=== PATIENT | female | born 1940 | race Caucasian/White ===

== ENCOUNTER 2018-11-06 05:53 | Inpatient (IN) ==
[2018-11-06] MEDS ORDERED: TRANEXAMIC ACID 1,000 MG in NORMAL SALINE 100 ML IV PRN (06:00)
[2018-11-06] MEDS ORDERED: MORPHINE SULFATE 15 MG TABLET.SA PO PRN (06:00)
[2018-11-06] MEDS ORDERED: ceFAZolin SODIUM 1 GM VIAL IV PRN (06:00)
[2018-11-06] MEDS ORDERED: ROPIVACAINE HCL/PF 100 MG, EPINEPHrine 0.2 MG, KETOROLAC TROMETHAMINE 30 MG in NORMAL S... IJ PRN (06:00)
[2018-11-06] MEDS: RINGER'S SOLUTION,LACTATED 1,000 ML IV PRN ×2 (07:17→08:59)
--- NOTE | 2018-11-06 07:18 | ANES ---
Anesthesia Pre Procedure Eval Vitals/Labs: Last Vital Signs Temp 36.4 C 11/06/18 06:38 Pulse 71 11/06/18 06:38 Resp 18 11/06/18 06:38 BP 171/64 H 11/06/18 06:38 Pulse Ox 98 11/06/18 06:38 HOME MEDICATIONS Acebutolol HCl [Sectral] 200 mg PO HS 06/06/15 [Last Taken 11/05/18] Hydrochlorothiazide [Hydrodiuril] 25 mg PO DAILY 06/06/15 [Last Taken 11/06/18] Multivit-Minerals/Folic/Ginkgo [One Daily Women 50 Plus Tab] 1 ea PO DAILY 06/06/15 [Last Taken 11/05/18] [place]-3 Fatty Acids/Fish Oil [Fish Oil 1,000 mg Capsule] 1 ea PO BID 06/06/15 [Last Taken 11/05/18] oxybutynin chloride ER 10 mg tablet,extended release 24 hr 10 mg PO DAILY 09/06/18 [Last Taken 11/05/18] escitalopram 10 mg tablet 20 mg PO DAILY tab 09/12/18 [Last Taken 11/05/18] losartan 50 mg tablet 50 mg PO DAILY 09/12/18 [Last Taken 11/05/18] Cholecalciferol (Vitamin D3) [Vitamin D3] 1,000 unit PO DAILY 11/06/18 [Last Taken 11/05/18] Cyanocobalamin [Vitamin B-12] 1,000 mcg IJ .COMPLEX 11/06/18 [Last Taken 11/03/18] Allergies/Adverse Reactions: Allergies Allergy/AdvReac Type Severity Reaction Status Date / Time No Known Allergies Allergy Verified 09/19/18 12:58 - Planned Procedure Planned Procedure: Revision Uni to total R knee Medication List Reviewed:: Yes Allergies Verified: Yes Medical History (Updated 11/06/18 @ 06:55 by Ayana Lucio RN) Knee pain, right (Chronic) Onset Date: Unknown Lives alone with help available No history of alcohol use Non-tobacco user Stress incontinence Vitamin B12 deficiency Wears dentures Wears glasses Cataract Onset Date: ~2009 p/t reports resolved due to surgery, bilateral Hypertension Onset Date: ~1989 Obesity Onset Date: ~2014 Osteoarthritis Onset Date: ~2003 Tear of meniscus of left knee Onset Date: ~2003 Surgical History (Updated 11/06/18 @ 06:56 by Ayana Lucio RN) Bilateral cataracts H/O arthroscopy of right knee Onset Date: ~07/2003 RT; left- 06/23-16 Dr. Duffy History of total knee arthroplasty Onset Date: ~07/[address] Duffy 2016 and partial R 2003 by unknown Hx of cholecystectomy Onset Date: ~1979 S/P TYLOR-BSO Onset Date: ~1985 Tubal ligation status Onset Date: ~1978 Family History (Last Reviewed 11/06/18 @ 07:04 by Gurwinder March CRNA) Father Alzheimers disease Hypertension Mother Diabetes Myocardial infarction CVA (cerebral vascular accident) Sister Hypertension Brother Alive and well Daughter History of open heart surgery Hypertension Daughter Hypertension Brother No problems noted. Son Hypertension Son Hypertension Son Hypertension - Family Anesthesia History Family History:: no untoward family reactions to anesthesia, no familial bleeding tendencies, no family history of clotting disorders, no family history of premature - Airway/Neck/Teeth Teeth Condition: none Denture Type: Full upper, Full lower Neck Exam: full range of motion Mallampatti Score: 1 Thyromental (T-M) distance: > 6 cm Mandibulo Hyoid distance: > 3 cm - Respiratory Respiratory Physical: lungs clear Smoking Status: Never smoker Sleep Apnea currently treated: No Sleep Apnea by current assessment: No - Cardiovascular Cardiac History: hypertension Tolerate Activity: Fair Heart Sounds: S1 & S2, Regular - Anesthesia Assessment and Plan ASA Class: PS, II Anesthesia Type Plan: Block - adductor canal block for post op pain relief, Spinal
[2018-11-06] MEDS ORDERED: ACETAMINOPHEN 500 MG TABLET PO PRN (11:00)
[2018-11-06] MEDS ORDERED: MORPHINE SULFATE 2 MG/ML DISP.SYRIN IV PRN (11:00)
[2018-11-06] MEDS ORDERED: ONDANSETRON HCL/PF 2 MG/ML VIAL IV PRN (11:00)
[2018-11-06] MEDS ORDERED: diphenhydrAMINE HCL 50 MG/ML VIAL IV PRN (11:00)
[2018-11-06] MEDS ORDERED: MAG HYDROX/ALUMINUM HYD/SIMETH 30 ML UDC PO PRN (11:00)
[2018-11-06] MEDS ORDERED: ZOLPIDEM TARTRATE 5 MG TABLET PO PRN (11:00)
[2018-11-06] MEDS ORDERED: MAGNESIUM HYDROXIDE 30 ML UDC PO PRN (11:00)
--- NOTE | 2018-11-06 11:09 | OR ---
Operative Report - Dictated Report Narrative: Date: 11/06/2018 Preoperative diagnosis: Painful right unicompartmental knee arthroplasty with progression of knee degenerative joint disease. Postoperative diagnosis: Painful right unicompartmental knee arthroplasty with progression of knee degenerative joint disease. Procedure: Revision right Total knee arthroplasty. Revision anterior knee scar 15 cm. Surgeon: Devante Duffy M.D. [employer]folio Management Marketing: Juan David Yarbrough PA-C (provided and essential set of skilled, educated hands that assisted with transfer, positioning, prepping, draping, manipulation, retraction, placement of jigs, injection, insertion of implants, irrigation, closure wounds, and dressings all of which could not be performed by the available surgical crew) Anesthesia: Spinal with regional block and local periarticular joint injection. Complications: None Specimens: Bone. Tissue for acute inflammation. Implants for disposal Estimated blood loss: 50 mL. Tourniquet time: 121 Minutes at 350 millimeters of mercury. Retained implants: Depuy Attune size 5 narrow right lugged cemented posterior stabilized femoral component. Size 5 rotating platform attune revision cemented tibial. 5 by 10 millimeter posterior stabilized cross-linked tibial insert. The 14 mm x 50 mm cemented revision tibial stem. Revision tibial augment cemented 5 mm medial step augment. 38 millimeter medialized patella button. Indications: Mrs. Reyes is a 78-year-old female who previously underwent a uni-compartment knee arthroplasty and has developed progressive arthrosis. This patient was followed in my clinic for period of time with significant complaints of right knee pain consistent with arthritic changes. She had failed conservative measures including, but not limited to, activity modification, passage of time, medications, and other conservative measures. Patient wished to proceed with surgical treatment. A workup for infection was negative. The risks, benefits, and alternatives were discussed in clinic. The risks of , blood clots, bleeding, infection, nerve/tendon blood vessel/ injury, malposition of components, intraoperative fracture, postoperative limited range of motion, persistent pain, failure of components, and need for additional procedures. Patient wished to proceed consent was obtained after answering all questions. Procedure: After marking the correct extremity on the floor, the patient was taken to the operating room. A timeout was performed. IV antibiotics consis ting of left were administered prior to the procedure. A regional followed by spinal anesthetic was induced by anesthesia, per my request, on the operative table with all bony prominences well-padded. Dong catheter was placed, and a bump was placed under the operative side buttock. SCDs and EPI hose were utilized on the nonoperative leg. A well-padded tourniquet was applied to the operative thigh. The operative leg was then pre-scrubbed with alcohol, prepped, and draped in a standard sterile fashion. After exsanguinating the extremity with an Esmarch bandage, the tourniquet was inflated. She had a previous incision which was utilized. This was somewhat widened and over the course of 15 cm this was excised. The skin was incised and dissected down to the joint retinaculum. The joint retinaculum was marked out as well as the horizontal axis of the patella, and a standard medial parapatellar arthrotomy was then made. The most proximal aspect of the quadriceps tendon and the patella tendon insertion were protected from release. A partial synovectomy was performed as well as a resection of the infrapatellar fat pad. The prior implants were identified and showed no signs of gross loosening. There is no gross signs of infection. Tissue was sent to pathology for evaluation with frozen specimen for acute inflammation which showed less than 5 neutrophils per high-power field. The distal femoral fat pad proximal to the trochlea was also resected using cautery. The soft tissues were elevated off the medial aspect of the proximal tibia using a Samuels elevator ensuring that we did not transect the medial collateral ligament. Upon initial evaluation range of motion was approximately 0 degrees to 120 degrees of flexion. There were signs of advanced arthrosis in the patellofemoral and lateral joint spaces. There were large marginal osteophytes which were removed with a rongeur. We initially turned our attention to removing the implants. The tibial polyethylene was removed and attention was turned to the femoral implant. The femoral implant was somewhat prominent over the remaining bone and was removed quite easily without any significant bone loss. The tibia was cut and somewhat recessed into the tibia and utilizing osteotomes this was also removed without any excessive bone loss. The knee was hyperflexed and the patella was tucked laterally. Protecting the surrounding soft tissues with Homans, an entry drill was placed down the femoral canal using Whitesides line for guidance into the entry point. The intramedullary femoral alignment maria was utilized in order to cut the distal femur in 5 degrees of valgus resecting 10 millimeters of bone. This allowed for a cleanup cut of the medial femur. Next the distal femur was sized to a size 5. A posterior referencing guide was utilized to place the distal femoral cutting block in 3 degrees of external rotation. There was some remaining bone over the posterior medial femoral condyle which allowed for posterior referencing. This was pinned into place. The rotation was confirmed both visually and based on anatomic landmarks. The 4 in 1 cutting jig of the appropriate size was utilized in order to make all bony cuts. The beverly wing was used to ensure no excessive notching. Retractors were utilized in order to protect surrounding soft tissues. This cut did not result in any excessive notching. We then cut the box centered over the distal femur. This allowed for resection of the anterior and posterior cruciate ligaments. I then turned my attention to the preparation of the tibia. Using an extra medullary tibial alignment maria, we initially resected for millimeters of bone was resected off the lateral articular surface. This was made perpendicular to the mechanical axis of the joint with the alignment maria centered over the ankle mortise. Due to the significant prior bony resection of the medial tibia was felt that a step cut type implant will be necessary. We subsequently placed a series of reamers down the tibial canal up to a size 16. The step cut was then made in order to clean up cut medial femur and based on evaluation additional 2 to 3 mm of cut was made off of the lateral joint space. The alignment maria was checked and was noted to be parallel to the mechanical axis, centered over the medial one third of the tibial tubercle, paralleling the anterior surface of the tibia. We then turned our attention to the remaining meniscus and soft tissues. These were removed while protecting the surrounding ligaments and soft tissues. The marginal osteophytes off the anterior, posterior, medial, lateral aspects of the femur and tibia were removed. The tibia was sized out to a size 5 with a 5 mm step in the medial tibial plateau. Next the tibia was drilled and punched in an externally rotated position. Next the trial femur and a series of tibial inserts were utilized in order to allow for full extension and maximal flexion. It was found that a 10 millimeter insert gave the best range of motion and stability at multiple flexion points as well as at full extension there was less than 2 mm of gapping both medially and laterally. There is minimal anterior translation with the knee at 90 degrees of flexion and no signs of being able to dislocate the knee. The patella was then prepared. The initial thickness was 24 millimeters. This was reamed down to 14 millimeters parallel to the anterior surface of the patella. It was sized out to a size 38 medialized patella button. This was then drilled and trialed. Without any medial restraint the patella tracked appropriately and did not sublux or dislocate. At this point, it was felt these were the appropriate sized implants, and all trials were removed. The standard periarticular joint injection consisting of ropivacaine, Toradol, and epinephrine were injected into the periarticular joint tissues. The bony surfaces were thoroughly irrigated with a pulsatile-suction saline irrigation device. A bone plug from the prior resected bone cut was placed into the drill hole at the distal femur. The bony surfaces were then dried in preparation for placement of the implants. The cement was vacuum mixed per the production corrugator's instructions. The cement was placed on the dry bony surfaces and posterior aspect of the implants as well as down the tibial canal. A portion of the prior bone cuts was utilized as a plug distally. The implants were impacted into place, removing all extruded cement. At this point anesthesia administered tranexamic acid per protocol intravenously. The knee was placed in extension with axial loading with the trial insert while the cement cured. Once the cement cured, all remaining extruded cement was removed. The knee was placed through a range of motion with the trial insert to ensure appropriate range of motion and stability. Final range of motion was approximately 0 to 120 degrees. The knee was again thoroughly irrigated with pulsatile saline lavage. The final polyethylene insert was then impacted into place ensuring no retained soft tissues. The remaining periarticular joint injection was injected. A medium Hemovac drain was placed exiting superior laterally. The knee was then placed over a triangle and the arthrotomy was closed with interrupted #1 Vicryl after thoroughly irrigating the joint. The deep and subcutaneous tissues were closed with interrupted 0 and 3-0 Vicryl respectively. Skin was closed with a running subcutaneous 3-0 Monocryl and Prineo Dermabond dressing. 4 x 4's, Sof-Rol, and a full leg Chente wrap were araceli lied. All sponge, needle, blade, and instrument counts were correct prior to closing the wounds. Postoperative condition: The patient was awoken and transferred to the postanesthesia care unit in stable condition. Plan is to be admitted to the inpatient medical/surgical floor postoperatively for 24 hours of IV antibiotics, physical therapy, occupational therapy, and medical comanagement. Patient will be weightbearing as tolerated with range of motion as tolerated. DVT prophylaxis will be with SCDs, EPI hose, and pharmacological anticoagulation. Anticipated hospital stay is approximately 1-3 days.
--- NOTE | 2018-11-06 11:14 | ANES ---
Post Anesthesia Discharge - Transfer of Care Transfer of Care handoff given to nurse: Yes - Discharge from PACU Discharge from PACU when meets criteria: Yes - Comfortable in PACU.
--- NOTE | 2018-11-06 11:17 | ANES ---
Anesthesia Procedure Note Procedure Note: ANESTHESIA PROCEDURE NOTE Date of Procedure: 11/06/2018 Time of procedure: 7:50 AM. Performed by: Gurwinder March CRNA, MSN Supervisor [employer]: Zo Etienne RN. Preprocedure diagnosis: Right total knee arthroplasty pain. Post procedure diagnosis: Same. Procedure: Right Adductor Canal Block. Indications: Post right total knee arthroplasty pain relief. Findings: See below. Details of the procedure: The patient was brought to OR #4 and placed in supine position. The patient's right femoral area to the knee was prepped with chlorhexidine and using ultrasound guidance the right femoral artery wasidentified at approximately the proximal one third femur. Under ultrasound guidance the saphenous nerve was approached with visualization of a 4 inch shielded block needle approaching the adductor canal just under the sartorius muscle. Once saphenous nerve was identified with proximity to the needle tip, the saphenous nerve was surrounded with 20 mL bupivacaine 0.25% with 1-200,000 epinephrine. Please see radiology/ultrasound report for details and retained images of the procedure. EBL: 0 Fluids: N/A. Specimen: N/A. Post procedure condition: The patient tolerated the procedure well. No complications were noted. Thank you for this consultation. Gurwinder March CRNA, MSN
[2018-11-06] MEDS ORDERED: SIMETHICONE 80 MG TAB.CHEW PO ONE (11:30)
[2018-11-06] MEDS: DEXTROSE 5%-LACTATED RINGERS 1,000 ML IV PRN ×2 (11:57→21:05)
[2018-11-06] MEDS: KETOROLAC TROMETHAMINE 15 MG/ML VIAL IV SCH ×2 (11:58→17:30)
[2018-11-06] MEDS: ceFAZolin SODIUM 1 GM in DEXTROSE 5 % IN WATER 100 ML IV SCH ×4 (12:09→19:23)
--- NOTE | 2018-11-06 13:53 | ANES ---
Post Anesthesia Assessment - Vital Signs Vitals: Last Vital Signs Temp 36.5 C 11/06/18 11:52 Pulse 67 11/06/18 11:52 Resp 16 11/06/18 11:52 BP 135/65 11/06/18 11:52 Pulse Ox 100 11/06/18 11:52 Airway Patency: Normal - Mental Status Level Of Consciousness: Awake, Alert, Appropriate - Pain Level Pain Score: 3 - N/V Assessment Nausea/Vomiting Presence: None Dehydration:: No
[2018-11-06] MEDS: oxyCODONE HCL/ACETAMINOPHEN 1 TAB TABLET PO PRN (17:34)
[2018-11-06] MEDS: OMEGA-3 FATTY ACIDS 1 CAP CAPSULE PO SCH (20:59)
[2018-11-06] MEDS: MORPHINE SULFATE 15 MG TABLET.SA PO SCH (20:59)
[2018-11-06] MEDS ORDERED: SENNOSIDES/DOCUSATE SODIUM 1 TAB TABLET PO SCH (21:00)
[2018-11-06] MEDS ORDERED: PROPRANOLOL HCL 80 MG CAPSULE.SA PO SCH (21:00)
[2018-11-06] MEDS ORDERED: ACEBUTOLOL HCL 200 MG CAPSULE PO SCH (21:00)
[2018-11-07] MEDS: KETOROLAC TROMETHAMINE 15 MG/ML VIAL IV SCH ×3 (00:18→12:02)
[2018-11-07] MEDS: ceFAZolin SODIUM 1 GM in DEXTROSE 5 % IN WATER 100 ML IV SCH ×2 (00:39)
[2018-11-07 05:24] LABS: Hematocrit 32.6 % (37.0-47.0); Hemoglobin 10.5 gm/dL (12.5-16.0); Mean Cell Volume 95.9 fl (78-100); Mean Corpuscular Hemoglobin 30.9 pg (27-31); Mean Corpuscular Hgb Conc 32.2 g/dl (32-36); Mean Platelet Volume 9.6 fl (8-12.5); Platelet Count 172 K/mm3 (150-450); Red Cell Distribution Width 13.2 % (11.5-14.0); White Blood Count 11.9 K/mm3 (4.0-10.5)
[2018-11-07 05:28] LABS: Anion Gap 10.3 mmol/L (6.8-13.8); BUN/Creatinine Ratio 26.3 (9.0-21.6); Calcium * 8.1 mg/dL (7.9-10.9); Carbon Dioxide 31.7 mmol/L (24-32.6); Estimated Creat Clear 46.9
[2018-11-07] MEDS: oxyCODONE HCL/ACETAMINOPHEN 1 TAB TABLET PO PRN (07:32)
[2018-11-07] MEDS ORDERED: OXYBUTYNIN CHLORIDE 5 MG TABLET PO SCH (09:00)
[2018-11-07] MEDS ORDERED: LOSARTAN POTASSIUM 50 MG TABLET PO SCH (09:00)
[2018-11-07] MEDS ORDERED: ESCITALOPRAM OXALATE 10 MG TAB PO SCH (09:00)
[2018-11-07] MEDS ORDERED: CHOLECALCIFEROL 1,000 UNIT CAPSULE PO SCH (09:00)
[2018-11-07] MEDS ORDERED: MULTIVITAMIN/IRON/FOLIC ACID 1 TAB TABLET PO SCH (09:00)
[2018-11-07] MEDS ORDERED: HYDROCHLOROTHIAZIDE 25 MG TABLET PO SCH (09:00)
[2018-11-07] MEDS: MORPHINE SULFATE 15 MG TABLET.SA PO SCH (09:30)
[2018-11-07] MEDS: OMEGA-3 FATTY ACIDS 1 CAP CAPSULE PO SCH (09:31)
[2018-11-07] MEDS ORDERED: ENOXAPARIN SODIUM 40 MG/0.4 ML SYRG SC SCH (10:00)
--- NOTE | 2018-11-07 16:08 | DS ---
(1) Status post revision of total replacement of right knee Problem: Acute (2) Acute blood loss anemia Problem: Acute (3) Hyperlipidemia Problem: Chronic (4) HTN (hypertension) Problem: Chronic Description of Stay: Ms. Reyes was admitted to the floor after undergoing revision right unicompartmental to right total knee arthroplasty. Tolerated this well. Was admitted to the floor postoperatively for 24 hours of IV antibiotics, pain control, medical comanagement, and occupational and physical therapy. OT and PT were consulted to assist with activities of daily living and ambulation. Was made weightbearing as tolerated with range of motion as tolerated. Pain was initially controlled with IV regimen. This was transitioned to oral once tolerating a by mouth intake. Was resumed on home diet and medications. Had a Dong catheter inserted and the operating room which was discontinued on postoperative day 1. A drain was placed intraoperatively into the knee which was discontinued on postoperative day 1. Lovenox SCD and EPI hose were utilized for DVT prophylaxis. Vital signs remained stable to the hospital course. Serial labs were obtained which showed a final hemoglobin of 10.5 grams. BMP was reviewed and was stable. Physical examination throughout the hospital course showed an extremity that had sensation that was intact to light touch, palpable pulses, a benign wound, motor intact to the toes, ankle, and knee. Knee range of motion was approximately 5 degrees to 60 degrees. Once an oral pain regimen was tolerated and physical therapy goals were met, it was felt that they were stable for discharge to home. Instructions: Continue with weightbearing as tolerated and range of motion as tolerated. It is OK to shower on the wound if it is not draining. If you note any drainage or for comfort you can cover with dry gauze and tape. Change every 2-3 days as needed. Continue with physical therapy. Resume home diet. Report any fever over 101.5 Fahrenheit, uncontrolled pain, increased drainage, foul odor of drainage, new or increased calf pain or shortness of breath, or any other significant complaints. A 325mg dialy aspirin will be started after finishing anticoagulation if not allergic. Continue with EPI hose on the operative extremity until instructed otherwise. No driving until instructed otherwise. Follow up in approximately 10-14 days. Procedures Performed: see notes below List Procedures: Revision unicompartmental to right total knee replacement Results and Findings: Lab Pending Results 11/06/18 11:54: Pathology Specimen Spec to path 11/07/18 05:05: WBC 11.9 H, RBC 3.40 L, Hgb 10.5 L, Hct 32.6 L, MCV 95.9, MCH 30.9, MCHC 32.2, RDW 13.2, Plt Count 172, MPV 9.6 11/07/18 05:05: Sodium 138, Plasma Sodium 138, Potassium 4.0, Chloride 100, Carbon Dioxide 31.7, Anion Gap 10.3, BUN 21, Creatinine 0.80, Est GFR (Non-Af Amer) 74, BUN/Creatinine Ratio 26.3 H, Random Glucose 130 H, Calcium 8.1 Discharge Location: Home Disposition: Home self-care Condition: Good Discharge Activity: Activity as tolerated, Other - With walker Discharge Diet: Low salt, Low fat/chol Referrals: Tomás Cole MD [Primary Care Provider] - Additional Patient Instructions (free text): Follow up Physical Therapy appt. at [facility] in [place], [place] on November 09 at 11:00am. Please fax PT order and demographic sheet to [facility] in [place] fax #[phone]. Follow up Orthopedic Dr. Duffy's office appt. on TuesdayNovember 28 at 9:45am. Prescriptions (Any new or edited meds): Enoxaparin Sodium [Lovenox] 40 mg SC Q24H #7 disp.syrin Morphine Sulfate [Ms Contin] 15 mg PO Q12H #14 tablet.sa oxyCODONE HCL/ACETAMINOPHEN [Percocet 5 MG/325 MG] 2 tab PO Q4H PRN #60 tab PRN Reason: Moderate Pain (Pain Scale 4-6) Sennosides/Docusate Sodium [Senokot-S] 2 tab PO HS #30 tab Complete Home Medications List: Complete Home Medication List: Acebutolol HCl [Sectral] 200 mg PO HS 06/06/15 Hydrochlorothiazide [Hydrodiuril] 25 mg PO DAILY 06/06/15 Multivit-Minerals/Folic/Ginkgo [One Daily Women 50 Plus Tab] 1 ea PO DAILY 06/06/15 [place]-3 Fatty Acids/Fish Oil [Fish Oil 1,000 mg Capsule] 1 ea PO BID 06/06/15 oxybutynin chloride ER 10 mg tablet,extended release 24 hr 10 mg PO DAILY 09/06/18 escitalopram 10 mg tablet 20 mg PO DAILY tab 09/12/18 losartan 50 mg tablet 50 mg PO DAILY 09/12/18 Cholecalciferol (Vitamin D3) [Vitamin D3] 1,000 unit PO DAILY 11/06/18 Cyanocobalamin [Vitamin B-12] 1,000 mcg IJ .COMPLEX 11/06/18 Enoxaparin Sodium [Lovenox] 40 mg SC Q24H #7 disp.syrin 11/07/18 Morphine Sulfate [Ms Contin] 15 mg PO Q12H #14 tablet.sa 11/07/18 Propranolol HCl [Inderal LA] 80 mg PO HS capsule.sa 11/07/18 Sennosides/Docusate Sodium [Senokot-S] 2 tab PO HS #30 tab 11/07/18 oxyCODONE HCL/ACETAMINOPHEN [Percocet 5 MG/325 MG] 2 tab PO Q4H PRN #60 tab 0 11/07/18 Amb Orders for Discharge: PT Evaluation and Treatment* Facility: [facility], Location: Rehabilitation Services
[2018-11-07 17:50] VITALS: BP 117/51
[2018-11-17] MEDS ORDERED: CYANOCOBALAMIN 1,000 MCG/ML VIAL IJ SCH (09:00)
== END 2018-11-07 17:50 | disposition home or self-care (01) | DRG 467 ==
LOC: MS 05:53
PROVIDERS: ADMIT Orthopaedic Surgery; ATTEND Orthopaedic Surgery
DX: Y79.3 Surgical instruments, materials and orthopedic devices (including sutures) associated with adverse incidents; Z96.651 Presence of right artificial knee joint; M17.5 Other unilateral secondary osteoarthritis of knee; G89.28 Other chronic postprocedural pain; T84.84XA Pain due to internal orthopedic prosthetic devices, implants and grafts, initial encounter; I45.10 Unspecified right bundle-branch block; E78.5 Hyperlipidemia, unspecified; I27.20 Pulmonary hypertension, unspecified; G47.33 Obstructive sleep apnea (adult) (pediatric); D62 Acute posthemorrhagic anemia; I10 Essential (primary) hypertension
CPT/HCPCS: 36415; 73560; 80048; 85027; 88305; 88311; 88331; 94660; 97110; 97116; 97161; 97165; 97535; J2405